=== PATIENT | male | born 1990 | race Caucasian/White ===

== ENCOUNTER 2023-06-11 16:26 | Inpatient (IN) | payer MEDICAID, OTHER ==
[~2023-06-11] VITALS: Ht 175.3 cm; Wt 77.6 kg
[2023-06-11] MEDS ORDERED: ZOLPIDEM TARTRATE 10 MG TABLET PO PRN (19:15)
[2023-06-11] MEDS ORDERED: INFLUENZA VIRUS VACCINE QVS 2023-24 (6MO+)/PF 60 MCG/0.5 ML SYRINGE IM. ONE (22:45)
[2023-06-12 00:28] VITALS: BP 121/72; PULSE 80; RESP 18; TEMP 97.6
[2023-06-12 00:55] VITALS: BP 121/72; PULSE 80; RESP 18; TEMP 97.6; O2SAT 100
[2023-06-12 01:21] VITALS: BP 121/72; PULSE 80; RESP 18; TEMP 97.6
[2023-06-12 08:12] LABS: HEMOGLOBIN A1C 5.1 % (3.8-5.6)
[2023-06-12] MEDS: NICOTINE 14 MG/24 HOUR PATCH TD PRN (08:17)
[2023-06-12] MEDS: HALOPERIDOL 5 MG TABLET PO PRN ×2 (08:17→16:46)
[2023-06-12] MEDS: LORazepam 2 MG TABLET PO PRN ×3 (08:17→20:51)
[2023-06-12 08:29] LABS: CHOL/HDL RATIO 6.3 (4.2-7.3); FREE T4 (FREE THYROXINE) 0.76 ng/dL (0.76-1.46); T4 (THYROXINE) 5.1 mcg/dL (4.7-13.3)
[2023-06-12 09:28] VITALS: BP 129/66; PULSE 80; RESP 18; TEMP 98.1; O2SAT 97
[2023-06-12] MEDS ORDERED: MAGNESIUM HYDROXIDE SUSPENSION 30 ML UDCUP PO PRN (10:45)
[2023-06-12] MEDS ORDERED: IBUPROFEN 400 MG TABLET PO PRN (10:45)
[2023-06-12] MEDS ORDERED: CloNIDine HCL 0.1 MG TABLET PO PRN (10:45)
[2023-06-12] MEDS ORDERED: MAG HYDROX/ALUMINUM HYD/SIMETH ES 30 ML SUSPENSION UDCUP PO PRN (10:45)
[2023-06-12] MEDS ORDERED: ONDANSETRON HCL 4 MG TABLET PO PRN (10:45)
[2023-06-12] MEDS ORDERED: NICOTINE 14 MG/24 HOUR PATCH TD PRN (10:45)
[2023-06-12] MEDS ORDERED: ACETAMINOPHEN 325 MG TABLET PO PRN (10:45)
[2023-06-12] MEDS ORDERED: ALBUTEROL SULFATE HFA 90 MCG/PUFF 8 GM INHALER IH PRN (10:45)
[2023-06-12] MEDS ORDERED: PETROLATUM,WHITE 28 GM JELLY TP PRN (10:45)
[2023-06-12] MEDS ORDERED: DOCUSATE SODIUM 100 MG CAPSULE PO PRN (10:45)
[2023-06-12] MEDS ORDERED: LOPERAMIDE HCL 2 MG CAPSULE PO PRN (10:45)
[2023-06-12] MEDS ORDERED: GuaiFENesin/D-METHORPHAN [SUGAR-FREE] 200-20MG/10 ML SYRUP UDCUP PO PRN (10:45)
[2023-06-12 23:36] VITALS: BP 118/62; PULSE 75; RESP 16; TEMP 97.5; O2SAT 98
[2023-06-13] MEDS: NICOTINE 14 MG/24 HOUR PATCH TD PRN (07:56)
[2023-06-13] MEDS: LITHIUM CARBONATE 300 MG TABLET PO SCH (08:11)
[2023-06-13] MEDS: QUEtiapine FUMARATE 25 MG TABLET PO SCH (08:11)
[2023-06-13 08:31] LABS: BASOPHILS % (AUTO) 0.4 % (0.0-2.0); EOSINOPHILS % (AUTO) 2.1 % (1.0-6.0); HEMATOCRIT 42.7 % (41-53); HEMOGLOBIN 14.9 g/dL (13.5-17.5); LYMPHOCYTES # (AUTO) 1.6 K/uL (1.0-4.8); LYMPHOCYTES % (AUTO) 21.1 % (22.0-44.0); MEAN CORPUSCULAR HEMOGLOBIN 31.8 pg (26.0-34.0); MEAN CORPUSCULAR HGB CONC 34.8 G/dL (31.0-37.0); MEAN CORPUSCULAR VOLUME 92 fL (80-100); MONOCYTES # (AUTO) 0.5 K/uL (0.1-1.0); MONOCYTES % (AUTO) 6.6 % (2.0-9.0); NEUTROPHILS # (AUTO) 5.3 K/uL (1.8-7.7); NEUTROPHILS % (AUTO) 69.8 % (40.0-70.0); PLATELET COUNT (AUTO) 255 K/uL (150-450); RED BLOOD CELL COUNT(AUTO) 4.67 MIL/uL (4.50-5.90); RED CELL DISTRIBUTION WIDTH 12.7 % (11.5-14.5); WHITE BLOOD COUNT (AUTO) 7.7 K/uL (4.5-11.0)
[2023-06-13 08:37] VITALS: BP 121/69; PULSE 87; RESP 18; TEMP 97.8; O2SAT 98
[2023-06-13 08:55] LABS: HEMOGLOBIN A1C 5.1 % (3.8-5.6)
[2023-06-13 09:08] LABS: ALANINE AMINOTRANSFERASE 32 U/L (12-78); ALBUMIN 3.7 g/dL (3.4-5.0); ALKALINE PHOSPHATASE 92 U/L (46-116); ANION GAP 11 mmol/L (8-16); ASPARTATE AMINOTRANSFERASE 22 U/L (15-37); BILIRUBIN,TOTAL 0.3 mg/dL (0.1-1.0); CALCIUM, TOTAL 8.6 mg/dL (8.8-10.5); CARBON DIOXIDE 25 mmol/L (22-29); CHLORIDE 102 mmol/L (98-107); CHOL/HDL RATIO 6.2 (4.2-7.3); CHOLESTEROL 271 mg/dL (131-200); CREATININE 0.89 mg/dL (0.60-1.30); GLOMERULAR FILTR. RATE CALC > 60 mL/min (>60); GLUCOSE,RANDOM 141 mg/dL (70-110); HDL CHOLESTEROL 44 mg/dL (40-60); LDL CHOL (CALC.) 199 mg/dL (0-130); POTASSIUM 3.5 mmol/L (3.5-5.1); SODIUM SERUM 138 mmol/L (136-145); THYROID STIMULATING HORMONE 2.31 uIU/mL (0.36-3.74); TOTAL PROTEIN, SERUM 6.9 g/dL (6.4-8.2); TRIGLYCERIDES 142 mg/dL (15-150); UREA NITROGEN, BLOOD 18 mg/dL (7-18)
[2023-06-13 20:21] VITALS: BP 140/82; PULSE 96; RESP 18; TEMP 97.1; O2SAT 97
[2023-06-13] MEDS: LORazepam 2 MG TABLET PO PRN (22:51)
[2023-06-14 08:03] LABS: APPEARANCE,URINE CLEAR (CLEAR); BILIRUBIN,URINE NEGATIVE (NEGATIVE); COLOR,URINE LIGHT YELLOW (YELLOW); GLUCOSE, URINE (UA) NEGATIVE (NEGATIVE); KETONES,URINE NEGATIVE (NEGATIVE); LEUKOCYTE ESTERASE ,URINE NEGATIVE (NEGATIVE); NITRATE,URINE NEGATIVE (NEGATIVE); OCCULT BLOOD,URINE NEGATIVE (NEGATIVE); PH,URINE 5.5 (5.0-8.0); PH,URINE DRUG SCREEN 5.5 (5.0-8.0); PROTEIN,URINE NEGATIVE (NEGATIVE); SPECIFIC GRAVITIY, URINE 1.021 (1.003-1.030); UROBILINOGEN,URINE <=1.0 mg/dL (<=1.0)
[2023-06-14 08:09] LABS: ALCOHOL, URINE DRUG SCREEN NEGATIVE (NEGATIVE); AMPHET/METH SCREEN,URINE NEGATIVE (NEGATIVE); BARBITURATE SCREEN, URINE NEGATIVE (NEGATIVE); BENZODIAZEPINES SCREEN,URINE NEGATIVE (NEGATIVE); CANNABINOID SCREEN,URINE POSITIVE (NEGATIVE); COCAINE SCREEN,URINE NEGATIVE (NEGATIVE); METHADONE SCREEN, URINE NEGATIVE (NEGATIVE); OPIATE SCREEN,URINE NEGATIVE (NEGATIVE); PHENCYCLIDINE SCREEN,URINE NEGATIVE (NEGATIVE)
[2023-06-14] MEDS: LITHIUM CARBONATE 300 MG TABLET PO SCH (08:22)
[2023-06-14] MEDS: LORazepam 2 MG TABLET PO PRN (08:22)
[2023-06-14] MEDS: QUEtiapine FUMARATE 25 MG TABLET PO SCH (08:22)
[2023-06-14 08:33] VITALS: BP 124/86; PULSE 89; RESP 20; TEMP 98; O2SAT 98
[2023-06-14] MEDS: NICOTINE 14 MG/24 HOUR PATCH TD PRN (08:40)
[2023-06-14] MEDS ORDERED: QUET25TA PO (09:34)
[2023-06-14] MEDS ORDERED: LITH300T PO ×2 (09:34→11:54)
[2023-06-14] MEDS ORDERED: QUET25TA36 PO (11:54)
== END 2023-06-14 11:00 | disposition home or self-care (01) | DRG 750 ==
LOC: B3A 20:57
PROVIDERS: ADMIT Psychiatry & Neurology Psychiatry; ATTEND Psychiatry & Neurology Psychiatry
DX: F25.1 Schizoaffective disorder, depressive type (principal); Z59.00 Homelessness unspecified
CPT/HCPCS: 80053; 80061; 80307; 81003; 83036; 84436; 84439; 84443; 85025